=== PATIENT | female | born 1985 | race Caucasian/White ===

== ENCOUNTER 2023-09-25 18:16 | Outpatient (RCR) | payer OTHER, SELFPAY | END 2023-09-25 23:59 | disposition home or self-care (01) | LOC: RPT 18:16 | PROVIDERS: ATTENDING PHYSICIAN Physician Assistant Surgical; PRIMARYCARE PHYSICIAN Physician Assistant | DX: M25.521 Pain in right elbow (principal); Z73.6 Limitation of activities due to disability | CPT/HCPCS: 97010; 97110; 97112; 97140; 97161 ==

== ENCOUNTER 2023-10-30 17:58 | Outpatient (RCR) | payer OTHER, SELFPAY | END 2023-10-30 23:59 | disposition home or self-care (01) | LOC: RPT 17:58 | PROVIDERS: ATTENDING PHYSICIAN Physician Assistant Surgical; PRIMARYCARE PHYSICIAN Physician Assistant | DX: M25.521 Pain in right elbow (principal); Z73.6 Limitation of activities due to disability; S56.511D Strain of other extensor muscle, fascia and tendon at forearm level, right arm, subsequent encounter | CPT/HCPCS: 97010; 97110; 97140 ==

== ENCOUNTER 2023-11-27 18:04 | Outpatient (RCR) | payer OTHER, SELFPAY | END 2023-11-27 23:59 | disposition home or self-care (01) | LOC: RPT 18:04 | PROVIDERS: ATTENDING PHYSICIAN Physician Assistant Surgical; PRIMARYCARE PHYSICIAN Physician Assistant | DX: M25.521 Pain in right elbow (principal); Z73.6 Limitation of activities due to disability | CPT/HCPCS: 97010; 97110; 97140 ==

== ENCOUNTER 2024-01-07 14:21 | Emergency (ER) | payer OTHER, SELFPAY ==
[2024-01-07 14:26] VITALS: BP 130/85
[2024-01-07 14:49] VITALS: BMI 37.3
--- NOTE | 2024-01-07 14:50 | ED.GENMED ---
History of Present Illness
General
Chief Complaint: Breathing Problem
Time Seen by Provider: 01/07/24 14:47
Travel History
Have you had any contact with someone who has COVID-19?: No
Do you have any symptoms of coronavirus? Fever > 100 degrees, chills, cough, shortness of breath, sore throat, loss of taste or smell, muscle aches, or headache?: Yes
Symptoms:: sob
History of Present Illness
History of Present Illness:
39-year-old female with history of asthma presents to the emergency department for evaluation of shortness of breath. She was seen by her primary care physician earlier in the week and started on doxycycline and prednisone for presumed asthma
exacerbation. She does have a nebulizer at home and has been using DuoNebs every 6 hours but feels as though the symptoms are worsened immediately after using the DuoNeb. Denies any chest pain, leg swelling but does have left calf cramping.
Denies any fever
Past History
Past History
ED Past Medical History: Asthma, GERD and Other (Migraines, irritable bowel syndrome, non-binary)
ED Past Surgical History: Cholecystectomy, , Gynecological (Bilateral oophorectomy.) and Other (Abdominal wall hernia repair 2017)
Social History
Tobacco: Non-smoker
Alcohol: None
Drug: None
Personal:
Living: with family
Employment: Employed
Family History
Family History: Early CAD and Other ('everyone in my family' have hernias/)
Review of Systems
Review of Systems
Allergies reviewed?: Yes
All Other Systems: ROS reviewed and negative except as documented in HPI and ROS
Phy Exam
Physical Exam
Physical Exam:
GEN: Well appearing, NAD, WDWN
Eyes: PERRLA, EOMs intact, no scleral icterus
HENT: NCAT, oral mucosa moist
Lungs: Tachypneic with accessory muscle use, no wheezes or rales
Cardiac: RRR, no M/R/G, no peripheral edema. Radial pulses 2+ bilat
Abdomen: S, NT, ND, NABS, no masses or hepatosplenomegaly
Neuro: AO x 3
MSK: No gross deformity or ecchymosis. No edema. No digital clubbing
Skin: No rashes, petechiae. Normal color, no pallor or jaundice.
Psych: Calm, cooperative, proper hygiene
Course
Orders/Labs/Results
Orders:
Orders
01/07/24 14:47
Ipratropium/Albuterol Sulfate [Duoneb] 3 ml INH R NOW ONE
01/07/24 14:48
Electrocardiogram (*1) Urgent
Reason for Study: Shortness of Breath
EKG- Treatment ONCE
Test Result ONCE
01/07/24 14:49
CR Chest - 2 Views Urgent
Comment:
Reason For Exam: SOB
01/07/24 15:11
Complete Blood Count/With Diff Urgent
Comprehensive Metabolic Panel Urgent
D-Dimer Urgent
HCG, Serum Qualitative Screen Urgent
Troponin I Urgent
01/07/24 16:17
CT Chest Pe Study Urgent
Comment:
Reason For Exam: SOB, tachycardia, elevated dimer
Abnormal Lab Results
01/07/24
15:11
WBC 12.1 H 10^3/uL
(4.8-10.8)
Abs Immat Gran (auto) 0.5 H 10^3/uL
(0-0.05)
Absolute Neuts (auto) 10.0 H 10^3/uL
(1.4-6.5)
Immature Gran % 4.2 H %
(0-0.5)
Neutrophils % 83.3 H %
(42.2-75.2)
Lymphocytes % 10.5 L %
(20.5-51.1)
D-Dimer 0.75 H ug/mlFEU
(0.00-0.50)
Glucose 139 H mg/dl
(70-99)
AST 39 H U/L
(14-36)
01/07/24 15:11
01/07/24 15:11
Vital Signs
Initial and Last Documented VS:
Initial Vital Signs
Temp Pulse Resp BP Pulse Ox
98.9 F 113 24 130/85 100
01/07/24 14:26 01/07/24 14:26 01/07/24 14:26 01/07/24 14:26 01/07/24 14:26
Last Documented Vital Signs
Temp Pulse Resp BP Pulse Ox
98.9 F 99 18 131/91 100
01/07/24 14:26 01/07/24 19:43 01/07/24 19:43 01/07/24 19:43 01/07/24 19:43
MDM/Problems Addressed
MDM/Problems Addressed:
Due to lack of adventitious breath sounds coupled with patient's tachycardia and increased work of breathing D-dimer was obtained to evaluate for PE, this did return mildly positive thus a follow-up PET scan was obtained that was negative.
Unfortunately patient had to be scanned a second time due to an adequate contrast opacification of the pulmonary arteries. Labs are otherwise reassuring. No evidence for pneumonia. Will continue with current plan set in place by primary care
physician
*Critical Care Note
Total Time (30-74mins, 75-104mins- exclusive of procedures): Not Applicable
ED Attending Note
-
Portions of this chart may have been created with voice recognition software.� Occasional wrong word or��sound alike� substitutions may have occurred due to the inherent limitations of voice recognition software.
Discharge Plan
Departure
Patient Disposition: Home (Routine Discharge)
Date of Disposition: 01/07/24
Time of Disposition: 19:29
Patient with high blood pressure during this ER visit?: No
Discharge Problem:
Acute asthmatic bronchitis
Instructions: Acute Bronchitis, Adult (DC)
Prescriptions:
No Action
ipratropium-albuterol 0.5 mg-3 mg(2.5 mg base)/3 mL Solution For Nebulization
3 ml INHALATION R Q6HPRN PRN (Reason: sob)
cetirizine [Zyrtec] 10 mg Tablet
10 mg PO HS
prednisone 20 mg Tablet
40 mg PO DAILY
Patient Comments:
01/07/2024, filled on 01/04/2024 and instructed to take 2 tablets daily for 5 days.
sertraline 100 mg Tablet
100 mg PO HS
famotidine [Pepcid AC Maximum Strength] 20 mg Tablet
20 mg PO HS
Debrox 6.5 % Drops
3 - 4 drp EACH EAR SA
montelukast 10 mg Tablet
10 mg PO HS
calcium carbonate [Tums 500] 500 mg calcium (1,250 mg) Tablet,Chewable
1,000 mg PO BIDPRN PRN (Reason: stomach discomfort)
gabapentin 100 mg Capsule
200 mg PO HS
albuterol sulfate 90 mcg/actuation Hfa Aerosol Inhaler
1 puff INHALATION R Q4HPRN PRN (Reason: sob)
fluticasone propionate [Flonase Allergy Relief] 50 mcg/actuation [place],Suspension
2 spray INTRANASAL DAILY PRN (Reason: allergies)
doxycycline hyclate 100 mg Tablet
100 mg PO BID
Patient Comments:
01/07/2024, filled on 01/04/2024 and instructed to take one tablet BID for 7 days.
Multivitamin 50 Plus Tablet
1 tab PO HS
atomoxetine 80 mg Capsule
80 mg PO HS
Voltaren 1 % gel
1 applic topical DAILYPRN PRN (Reason: left lower back)
benzonatate 100 mg Capsule
100 mg PO TID PRN (Reason: cough)
Referrals:
Eliazar Alejandro MD [Family Provider] -
Activity Restrictions/Additional Instructions:
Continue the medications you have already started
Interventions
Interventions:
*Risk Screen - Suicide Last Done: 01/07/24 14:49
*General Assessment Last Done: 01/07/24 14:49
*Neglect/Abuse Screening Last Done: 01/07/24 14:49
*ED COVID-19 Vaccine History Last Done: 01/07/24 14:49
*Nursing Disposition Last Done: 01/07/24 19:46
ED- Cardiac Assessment Last Done: 01/07/24 15:33
ED- Pulmonary Assessment Last Done: 01/07/24 15:33
Discharge Date and Time
Discharge Date/Time: 01/07/24 19:52
Print Language: MALTESE
[2024-01-07 15:00] VITALS: BP 125/79
[2024-01-07] MEDS: DUONEB 3 ML INH (15:17)
[2024-01-07 15:25] LABS: % Basophils 0.3 % (0-2); % Immature Granulocytes 4.2 % (0-0.5); % Lymphocytes 10.5 % (20.5-51.1); % Monocytes 1.7 % (1.7-9.3); % Neutrophils 83.3 % (42.2-75.2); Absolute Immature Granulocytes 0.5 10^3/uL (0-0.05); Absolute Lymphocytes 1.3 10^3/uL (1.2-3.4); Absolute Monocytes 0.2 10^3/uL (0.1-0.6); Hemoglobin 13.5 g/dL (12.0-16.0); Mean Corp Hgb Conc. 33.8 g/dL (33.0-37.0); Mean Corpuscular Hgb 29.3 pg (27.0-31.0); Mean Corpuscular Volume 86.8 fL (81.0-99.0); Mean Platelet Volume 9.5 fL (7.4-10.4); Nucleated Red Blood Cells % 0 %; Platelet Count 344 10^3/uL (130-400); Red Blood Cell Count 4.61 10^6/uL (4.20-5.40); Red Cell Dist. Width 12.9 % (11.5-14.5); White Blood Cell Count 12.1 10^3/uL (4.8-10.8)
[2024-01-07 15:36] LABS: D-Dimer 0.75 ug/mlFEU (0.00-0.50)
[2024-01-07 15:53] LABS: HCG, Serum Qualitative Screen Negative
[2024-01-07 15:57] LABS: ALT (SGPT) 30 U/L (0-35); AST (SGOT) 39 U/L (14-36); Albumin 4.1 g/dl (3.5-5.0); Alkaline Phosphatase 99 U/L (38-126); Blood Urea Nitrogen 16 mg/dl (7-17); Calcium 9.8 mg/dl (8.4-10.2); Carbon Dioxide 24 mmol/L (22-30); Chloride 104 mmol/L (98-107); Estimated Creatinine Clearance 108 ml/min; Glucose 139 mg/dl (70-99); Potassium 4.1 mmol/L (3.5-5.1); Sodium 137 mmol/L (135-145); Total Bilirubin 0.2 mg/dl (0.2-1.3); eGFR > 60.00
[2024-01-07 16:43] LABS: Troponin I < 0.012 ng/ml
[2024-01-07 16:55] VITALS: BP 114/75
[2024-01-07 18:19] VITALS: BP 130/81
[2024-01-07 19:43] VITALS: BP 131/91
== END 2024-01-07 19:52 | disposition home or self-care (01) ==
LOC: EMR 14:21
PROVIDERS: Physician Assistant; EMERGENCY PHYSICIAN Emergency Medicine; FAMILY PHYSICIAN Family Medicine
DX: J45.909 Unspecified asthma, uncomplicated (principal); K21.9 Gastro-esophageal reflux disease without esophagitis; K58.9 Irritable bowel syndrome, unspecified; Z82.49 Family history of ischemic heart disease and other diseases of the circulatory system; Z90.49 Acquired absence of other specified parts of digestive tract; Z90.722 Acquired absence of ovaries, bilateral; Z98.890 Other specified postprocedural states
CPT/HCPCS: 99284; 94640; 71046; 71275; 80053; 84484; 84703; 85025; 85379; 93005; Q9967

== ENCOUNTER 2024-05-13 23:08 | Emergency (ER) | payer OTHER, SELFPAY ==
[2024-05-13 23:22] VITALS: BP 131/91
--- NOTE | 2024-05-14 00:49 | ED.GENMED ---
History of Present Illness
General
Chief Complaint: Skin Surface Trauma
Source: patient
Exam Limitations: none
Time Seen by Provider: 05/14/24 00:12
Nursing documentation reviewed up to this point in time: agreed with
History of Present Illness
History of Present Illness:
This is a pleasant 39-year-old female that presents with liquid bus greaser exposure to her face. She states that she was trying to unblock a drain. She was wearing very protective safety glasses that had a seal around the glasses to prevent liquids
from getting into the eye. She denies any ocular injury or eye pain. She does state that her cheeks were exposed and got several splashes and she feels burning. She immediately washed her face copiously and all exposed areas. She denies any
other issues.
Past History
Past History
ED Past Medical History: Asthma, GERD and Other (Migraines, irritable bowel syndrome, non-binary)
ED Past Surgical History: Cholecystectomy, , Gynecological (Bilateral oophorectomy.) and Other (Abdominal wall hernia repair 2017)
Social History
Tobacco: Non-smoker
Alcohol: None
Drug: None
Personal:
Living: with family
Employment: Employed
Family History
Family History: Early CAD and Other ('everyone in my family' have hernias/)
Review of Systems
Review of Systems
Allergies reviewed?: Yes
All Other Systems: ROS reviewed and negative except as documented in HPI and ROS
Constitutional: Reports no symptoms
EENT: Reports no symptoms
Respiratory: Reports no symptoms
Cardiac: Reports no symptoms
ABD/GI: Reports no symptoms
: Reports no symptoms
Musculoskeletal: Reports no symptoms
Skin: Reports other (Burning)
Neurological: Reports no symptoms
Endocrine: Reports no symptoms
Hematologic/Lymphatic: Reports no symptoms
Psychiatric: Reports anxiety
Phy Exam
General Physical Exam
General Presentation: well appearing and no apparent distress
General Skin: warm and dry
General Habitus: normal
General Mental: alert
General Hydration: appears well hydrated
ENT Exam
ENT Exam: EOMI, pharynx normal, neck supple and normocephalic
Eye Exam
Eye Exam: PERRL, cornea clear and conjunctiva normal
Cardiovascular Exam
Cardiovascular Exam: regular rate/rhythm, no edema, no murmur and normal peripheral pulses
Pulmonary Exam
Pulmonary Exam: lungs clear, no respiratory distress, no rales, no crackles, no rhonchi, no stridor, no wheezing and no cough
Gastrointestinal Exam
Gastrointestinal Exam: normal bowel sounds, non tender, soft, no organomegaly, no pulsatile mass and non distended
Neurological Exam
Neurological Exam: alert, oriented x3, no motor deficits and speech normal
Musculoskeletal Exam
Musculoskeletal Exam: full ROM and no edema
Skin Exam
Skin Exam: normal color, warm/dry, no rash and no petechia
Psychiatric Exam
Psychiatric Exam: normal mood/affect
Course
Vital Signs
Initial and Last Documented VS:
Initial Vital Signs
Temp Pulse Resp BP Pulse Ox
98.2 F 79 16 131/91 98
05/13/24 23:22 05/13/24 23:22 05/13/24 23:22 05/13/24 23:22 05/13/24 23:22
Last Documented Vital Signs
Temp Pulse Resp BP Pulse Ox
98.2 F 79 16 131/91 98
05/13/24 23:22 05/13/24 23:22 05/13/24 23:22 05/13/24 23:22 05/13/24 23:22
*Pulse Oximetry
Patient hypoxic: no
*Critical Care Note
Total Time (30-74mins, 75-104mins- exclusive of procedures): Not Applicable
Update Note
Update Note:
Using pH limits paper, the eye was checked. pH was between 6.5 and 7 in both eyes.
ED Attending Note
-
Portions of this chart may have been created with voice recognition software.� Occasional wrong word or��sound alike� substitutions may have occurred due to the inherent limitations of voice recognition software.
Discharge Plan
Departure
Patient Disposition: Home (Routine Discharge)
Date of Disposition: 05/14/24
Time of Disposition: 01:26
Patient with high blood pressure during this ER visit?: Yes
Condition: Good
Discharge Problem:
Alkali burn
Instructions: BLOOD PRESSURE, Minor Skin [facility] ED, Chemical Exposure to the Skin ED
Prescriptions:
No Action
ipratropium-albuterol 0.5 mg-3 mg(2.5 mg base)/3 mL Solution For Nebulization
3 ml INHALATION R Q6HPRN PRN (Reason: sob)
cetirizine [Zyrtec] 10 mg Tablet
10 mg PO HS
prednisone 20 mg Tablet
40 mg PO DAILY
Patient Comments:
01/07/2024, filled on 01/04/2024 and instructed to take 2 tablets daily for 5 days.
sertraline 100 mg Tablet
100 mg PO HS
famotidine [Pepcid AC Maximum Strength] 20 mg Tablet
20 mg PO HS
Debrox 6.5 % Drops
3 - 4 drp EACH EAR SA
montelukast 10 mg Tablet
10 mg PO HS
calcium carbonate [Tums 500] 500 mg calcium (1,250 mg) Tablet,Chewable
1,000 mg PO BIDPRN PRN (Reason: stomach discomfort)
gabapentin 100 mg Capsule
200 mg PO HS
albuterol sulfate 90 mcg/actuation Hfa Aerosol Inhaler
1 puff INHALATION R Q4HPRN PRN (Reason: sob)
fluticasone propionate [Flonase Allergy Relief] 50 mcg/actuation [place],Suspension
2 spray INTRANASAL DAILY PRN (Reason: allergies)
doxycycline hyclate 100 mg Tablet
100 mg PO BID
Patient Comments:
01/07/2024, filled on 01/04/2024 and instructed to take one tablet BID for 7 days.
Multivitamin 50 Plus Tablet
1 tab PO HS
atomoxetine 80 mg Capsule
80 mg PO HS
Voltaren 1 % gel
1 applic topical DAILYPRN PRN (Reason: left lower back)
benzonatate 100 mg Capsule
100 mg PO TID PRN (Reason: cough)
Referrals:
Angela Argueta PA [Family Provider] -
Activity Restrictions/Additional Instructions:
It was a pleasure meeting you and taking part in your care. We hope for your continued healing and wellness.
Please read discharge instructions in their entirety. However, they are for general education and may not describe your exact diagnosis at discharge. Information on your ER visit and medical conditions were discussed with you along with appropriate
follow up information...
If indicated, please take your medications as instructed and indicated on discharge paperwork.
Please schedule a follow up appointment as directed. Call to schedule an appointment
Please return to the emergency department with ANY change in, persisting, or worsening of symptoms. If any of your symptoms do not improve, or persist, or become more severe within 6-12 hours, please return to the emergency department for further
care.
Please return to the emergency department if you develop a headache, neck pain/stiffness, fever greater than 100.4F, chest pain, shortness of breath, persistent nausea, vomiting, slurred speech, difficulty walking, numbness/tingling, weakness, signs
of infection or any other symptoms that are worrisome to you.
If you have any questions or concerns please do not hesitate to call the Hospital at or E-mail me directly at [email or web address]
Interventions
Interventions:
*Risk Screen - Suicide Last Done: 05/13/24 23:08
*General Assessment Last Done: 05/13/24 23:22
*Neglect/Abuse Screening Last Done: 05/13/24 23:22
*ED COVID-19 Vaccine History Last Done: 05/13/24 23:22
ED-Skin Assessment Last Done: 05/14/24 00:40
Discharge Date and Time
Print Language: ITALIAN
== END 2024-05-14 01:53 | disposition home or self-care (01) ==
LOC: EMR 23:08
PROVIDERS: EMERGENCY PHYSICIAN Student in an Organized Health Care Education/Training Program; FAMILY PHYSICIAN Physician Assistant
DX: T65.891A Toxic effect of other specified substances, accidental (unintentional), initial encounter (principal); X58.XXXA Exposure to other specified factors, initial encounter; J45.909 Unspecified asthma, uncomplicated; K21.9 Gastro-esophageal reflux disease without esophagitis; Z90.49 Acquired absence of other specified parts of digestive tract; Z90.722 Acquired absence of ovaries, bilateral
CPT/HCPCS: 99282

== ENCOUNTER 2024-08-05 10:50 | Emergency (ER) | payer MEDICAID, SELFPAY ==
--- NOTE | 2024-08-05 10:57 | ED.GENMED ---
ED Provider Triage
<Sancho Zambrano PA-C - Last Filed: 08/05/24 11:01>
-
Patient seen by provider in Triage?: Seen in Triage
Attestation: A medical screening examination has been initiated by a qualified medical provider. Based on the assessment performed at this time, it has been determined that an emergent medical condition may exist and the patient has been informed
that further medical evaluation and possible additional diagnostic testing may be needed.
HPI: 39-year-old female who identifies as male presenting to the emergency department for evaluation of mental health reasons. Patient states that she is been going through a lot recently, her change medications from Zoloft to Cymbalta back to
Zoloft because he felt Cymbalta was not working. Today at work had an asthma attack and then anxiety attack. Started to have thoughts of wanting to harm himself so decided to come to the ER. No specific plan or intent. No physical complaints at
this time. Patient brought back for crisis evaluation.
GENERAL: Alert , in no apparent distress
EYE: No visual abnormalities.
NECK: Trachea midline
ENT: No visible abnormalities.
LUNGS: No acute respiratory distress
NEUROLOGICAL: Alert and oriented
SKIN: Skin intact. No visible changes.
MUSCULOSKELETAL: Moving extremities normally
PSYCH: Normal and appropriate interaction.
This is a medical evaluation conducted in person to initiate diagnostic evaluation and provide initial therapeutics. Please see further documentation by the treating clinician.
History of Present Illness
<Sancho Zambrano PA-C - Last Filed: 08/05/24 11:01>
General
Chief Complaint: Crisis Evaluation
Time Seen by Provider: 08/05/24 11:23
<Jhonny Snider Jr., PA-C - Last Filed: 08/05/24 14:48>
General
Source: patient
Exam Limitations: none
Nursing documentation reviewed up to this point in time: agreed with
History of Present Illness
History of Present Illness:
39-year-old female past medical history of anxiety depression PTSD presenting to the emergency department with worsening anxiety over the past few days after switching from Zoloft to Cymbalta and also missing a few days for gabapentin but started a
new dose last night. Denies any chest pain shortness of breath or other specific medical symptoms.
Past History
<Sancho Zambrano PA-C - Last Filed: 08/05/24 11:01>
Past History
ED Past Medical History: Asthma, GERD and Other (Migraines, irritable bowel syndrome, non-binary)
ED Past Surgical History: Cholecystectomy, , Gynecological (Bilateral oophorectomy.) and Other (Abdominal wall hernia repair 2017)
Social History
Tobacco: Non-smoker
Alcohol: None
Drug: None
Personal:
Living: with family
Employment: Employed
Family History
Family History: Early CAD and Other ('everyone in my family' have hernias/)
Review of Systems
<Jhonny Snider Jr., PA-C - Last Filed: 08/05/24 14:48>
Review of Systems
Allergies reviewed?: Yes
All Other Systems: ROS reviewed and negative except as documented in HPI and ROS
Phy Exam
<ISIDRO Somers Jr. Last Filed: 08/05/24 14:48>
Physical Exam
Physical Exam:
GENERAL: Alert , in no apparent distress
EYE: pupils equal and reactive
NECK: Supple, no significant adenopathy.
ENT: o/p clr, mmm.
CARDIAC: Regular rate and rhythm .
LUNGS: Clear breath sounds bilaterally, no acute respiratory distress, no wheezes/rales/rhonchi
ABDOMEN: Soft, without focal tenderness, no r/g, no cvat
NEUROLOGICAL: Alert and oriented, no focal neuro deficits
SKIN: Warm and dry, skin intact.
MUSCULOSKELETAL: No edema, well perfused.
PSYCH: Normal and appropriate interaction.
Course
<Sancho Zambrano PA-C - Last Filed: 08/05/24 11:01>
Orders/Labs/Results
Orders:
Orders
08/05/24 11:04
1:1 Observation - Suicide/ Violent Behavior As Directed
Crisis Consult Urgent
Reason for Consult: suicidal ideation
Vital Signs
Initial and Last Documented VS:
Initial Vital Signs
Temp Pulse Resp BP Pulse Ox
98.0 F 86 18 116/88 98
08/05/24 10:58 08/05/24 10:58 08/05/24 10:58 08/05/24 10:58 08/05/24 10:58
Last Documented Vital Signs
Temp Pulse Resp BP Pulse Ox
98.5 F 86 20 131/75 99
08/05/24 11:29 08/05/24 11:29 08/05/24 11:29 08/05/24 11:29 08/05/24 11:29
<Jhonny Snider Jr., PA-C - Last Filed: 08/05/24 14:48>
Orders/Labs/Results
Orders:
Orders
08/05/24 11:04
1:1 Observation - Suicide/ Violent Behavior As Directed
Crisis Consult Urgent
Reason for Consult: suicidal ideation
Vital Signs
Initial and Last Documented VS:
Initial Vital Signs
Temp Pulse Resp BP Pulse Ox
98.0 F 86 18 116/88 98
08/05/24 10:58 08/05/24 10:58 08/05/24 10:58 08/05/24 10:58 08/05/24 10:58
Last Documented Vital Signs
Temp Pulse Resp BP Pulse Ox
98.5 F 86 20 131/75 99
08/05/24 11:29 08/05/24 11:29 08/05/24 11:29 08/05/24 11:29 08/05/24 11:29
<Jhonny Snider Jr., PA-C - Last Filed: 08/05/24 14:48>
MDM/Problems Addressed
MDM/Problems Addressed:
39-year-old female presenting to the emergency department today with concerns of worsening anxiety over the past few days denies any specific plans of harming herself any thoughts of harming others well-kempt here vital signs normal patient no
distress. She had a fleeting thought of not wanting to deal with the symptoms anymore and a general sense but denies any specific thoughts of harming self. At this point patient is just seeking a way to sleep better at night. Some options were
given to the patient otherwise stable for outpatient close follow-up with her psychiatric team. Return precautions given.
<Jhonny Snider Jr., PA-C - Last Filed: 08/05/24 14:48>
*Critical Care Note
Total Time (30-74mins, 75-104mins- exclusive of procedures): Not Applicable
ED Attending Note
<Sancho Zambrano PA-C - Last Filed: 08/05/24 11:01>
-
Portions of this chart may have been created with voice recognition software.� Occasional wrong word or��sound alike� substitutions may have occurred due to the inherent limitations of voice recognition software.
Discharge Plan
Departure
Patient Disposition: Home (Routine Discharge)
Date of Disposition: 08/05/24
Time of Disposition: 14:45
Patient with high blood pressure during this ER visit?: No
Condition: Good
Covid-19: Not Applicable
Discharge Problem:
Anxiety
Instructions: Anxiety, Adult (DC)
Prescriptions:
New
lorazepam [Ativan] 0.5 mg tablet
0.5 mg PO HS PRN (Reason: Sleep) Qty: 3 0RF
No Action
ipratropium-albuterol 0.5 mg-3 mg(2.5 mg base)/3 mL Solution For Nebulization
3 ml INHALATION R Q6HPRN PRN (Reason: sob)
cetirizine [Zyrtec] 10 mg Tablet
10 mg PO HS
prednisone 20 mg Tablet
40 mg PO DAILY
Patient Comments:
01/07/2024, filled on 01/04/2024 and instructed to take 2 tablets daily for 5 days.
sertraline 100 mg Tablet
100 mg PO HS
famotidine [Pepcid AC Maximum Strength] 20 mg Tablet
20 mg PO HS
Debrox 6.5 % Drops
3 - 4 drp EACH EAR SA
montelukast 10 mg Tablet
10 mg PO HS
calcium carbonate [Tums 500] 500 mg calcium (1,250 mg) Tablet,Chewable
1,000 mg PO BIDPRN PRN (Reason: stomach discomfort)
gabapentin 100 mg Capsule
200 mg PO HS
albuterol sulfate 90 mcg/actuation Hfa Aerosol Inhaler
1 puff INHALATION R Q4HPRN PRN (Reason: sob)
fluticasone propionate [Flonase Allergy Relief] 50 mcg/actuation [place],Suspension
2 spray INTRANASAL DAILY PRN (Reason: allergies)
doxycycline hyclate 100 mg Tablet
100 mg PO BID
Patient Comments:
01/07/2024, filled on 01/04/2024 and instructed to take one tablet BID for 7 days.
Multivitamin 50 Plus Tablet
1 tab PO HS
atomoxetine 80 mg Capsule
80 mg PO HS
Voltaren 1 % gel
1 applic topical DAILYPRN PRN (Reason: left lower back)
benzonatate 100 mg Capsule
100 mg PO TID PRN (Reason: cough)
Referrals:
UNKNOWN - PT NOT,INTERVIEWE [Family Provider] -
Activity Restrictions/Additional Instructions:
Please take the prescribed medications to help with symptoms and sleep please take before bed. Please not drive or operate machinery while taking this medication. Return to the emergency department any worsening, new or concerning symptoms.
Interventions
Interventions:
*Risk Screen - Suicide Last Done: 08/05/24 10:58
*General Assessment Last Done: 08/05/24 11:05
*Neglect/Abuse Screening Last Done: 08/05/24 10:58
ED- Fall Risk Assessment Last Done: 08/05/24 11:26
*ED COVID-19 Vaccine History Last Done: 08/05/24 10:58
ED-Psychological Assessment Last Done: 08/05/24 11:26
Discharge Date and Time
Print Language: ECUADOREAN
[2024-08-05 10:58] VITALS: BP 116/88
[2024-08-05 11:26] VITALS: BMI 29.1
[2024-08-05 11:29] VITALS: BP 131/75
--- NOTE | 2024-08-05 14:33 | EDRN ---
Nathaniel GOLDEN currently at the pts bedside
[2024-08-05 14:54] VITALS: BP 136/76
== END 2024-08-05 14:56 | disposition home or self-care (01) ==
LOC: EMR 10:50
PROVIDERS: EMERGENCY PHYSICIAN Emergency Medicine
DX: F41.9 Anxiety disorder, unspecified (principal); J45.909 Unspecified asthma, uncomplicated; F43.10 Post-traumatic stress disorder, unspecified; K21.9 Gastro-esophageal reflux disease without esophagitis; K58.9 Irritable bowel syndrome, unspecified; Z82.49 Family history of ischemic heart disease and other diseases of the circulatory system; Z90.49 Acquired absence of other specified parts of digestive tract; Z90.722 Acquired absence of ovaries, bilateral
CPT/HCPCS: 99282